=== PATIENT | female | born 1995 | race Caucasian/White ===

== ENCOUNTER 2025-10-16 16:03 | Emergency (ER) | payer OTHER ==
[2025-10-16] MEDS ORDERED: Sodium Chloride 0.9% 10 ML Syringe FLUSH PRN (16:30)
[2025-10-16 17:04] LABS: BASOPHILS ABSOLUTE AUTO 0.03 K/uL (0.02-0.10); BASOPHILS PERCENT AUTO 0.3 % (0.0-0.5); EOSINOPHILS ABSOLUTE AUTO 0.01 K/uL (0.04-0.40); EOSINOPHILS PERCENT AUTO 0.1 % (1.0-5.0); LYMPHOCYTES ABSOLUTE AUTO 0.28 K/uL (1.50-4.00); LYMPHOCYTES PERCENT AUTO 2.6 % (20.0-40.0); MEAN PLATELET VOLUME 8.9 fL (6.0-10.0); MONOCYTES ABSOLUTE AUTO 0.88 K/uL (0.20-0.80); MONOCYTES PERCENT AUTO 8.2 % (3.0-10.0); NEUTROPHILS ABSOLUTE AUTO 9.51 K/uL (2.00-7.50); NEUTROPHILS PERCENT AUTO 88.8 % (45.0-70.0); PLATELET COUNT,PLT 293 K/uL (150-500); RED BLOOD CELL COUNT 4.59 M/uL (3.80-5.80); RED CELL DISTRIBUTION WIDTH 15.0 % (11.0-16.0); WHITE BLOOD CELL COUNT,WBC 10.7 K/uL (4.0-11.0)
[2025-10-16 17:20] LABS: A/G RATIO 0.9 (0.8-2.0); ALANINE AMINOTRANSFERASE,ALT 29.0 U/L (12-78); BILIRUBIN TOTAL 0.4 mg/dL (0.0-1.0); BLOOD UREA NITROGEN,BUN 13.0 mg/dL (8-26); CARBON DIOXIDE,CO2 24.1 mmol/L (21.0-32.0); CHLORIDE,CL 105.0 mmol/L (98-107); CREATININE 0.85 mg/dL (0.55-1.02); EST CRCL DRUG DOSING (CG) 92.24 mL/min; ESTIMATED GFR 96.0 mL/min (>60); GLUCOSE RANDOM 118.0 mg/dL (74-100); POTASSIUM,K 3.7 mmol/L (3.5-5.1); PROTEIN TOTAL,TP 7.6 g/dL (6.4-8.2); SODIUM,NA 138.0 mmol/L (136-145)
[2025-10-16 17:30] LABS: ASPARTATE AMNIOTRANSFERASE,AST 13.0 U/L (15-37)
[2025-10-16 18:17] LABS: INFLUENZA A NAA NEGATIVE (NEGATIVE); INFLUENZA B NAA NEGATIVE (NEGATIVE); RESPIRATORY SYNCYTIAL VIR NAA NEGATIVE (NEGATIVE)
[2025-10-16 18:20] LABS: CORONAVIRUS COVID-19 NAA POSITIVE (NEGATIVE)
[2025-10-16 18:30] VITALS: BP 116/75; PULSE 107
[2025-10-16 18:32] LABS: APPEARANCE,URINE CLEAR (CLEAR); GLUCOSE,URINE NEGATIVE (NEGATIVE); OCCULT BLOOD,URINE NEGATIVE (NEGATIVE)
[2025-10-16 18:37] LABS: SQUAMOUS EPITHELIAL CELLS,UR OCCASIONAL /HPF
== END 2025-10-16 19:00 | disposition home or self-care (01) ==
LOC: LB.ED 16:03
DX: U07.1 COVID-19 (principal); E86.0 Dehydration; Z79.899 Other long term (current) drug therapy
CPT/HCPCS: 36415; 80053; 81001; 81025; 82947; 84443; 85025; 86308; 87637; 93005; 96360; 99284; 99285-25; J7030